=== PATIENT | female | born 1995 | race Asian ===

== ENCOUNTER 2017-08-14 20:15 | Emergency (ER) | payer OTHER ==
[~2017-08-14] VITALS: Ht 160 cm; Wt 54.4 kg
[2017-08-14 20:52] VITALS: Ht 160 cm; Wt 54.4 kg
[2017-08-14 22:35] LABS: AMPHETAMINE QUAL UR NONE DETECTED (NEG <=1000)
[2017-08-14 22:59] VITALS: BP 122/87
== END 2017-08-14 22:59 | disposition home or self-care (01) ==
LOC: ED 20:15
PROVIDERS: Emergency Medicine
DX: S62.643A Nondisplaced fracture of proximal phalanx of left middle finger, initial encounter for closed fracture (principal); S62.645A Nondisplaced fracture of proximal phalanx of left ring finger, initial encounter for closed fracture; S62.663A Nondisplaced fracture of distal phalanx of left middle finger, initial encounter for closed fracture; X58.XXXA Exposure to other specified factors, initial encounter; Y93.89 Activity, other specified; Y92.89 Other specified places as the place of occurrence of the external cause; Y99.8 Other external cause status